=== PATIENT | female | born 1990 ===

== ENCOUNTER 2017-07-17 17:55 | Emergency (ER) | payer SELFPAY ==
[~2017-07-17] VITALS: Ht 160 cm; Wt 74.4 kg
[2017-07-17 18:06] VITALS: BP 146/84
--- NOTE | 2017-07-17 18:08 | ER Report ---
History and Physical Time Seen By MD: 18:07 HPI/ROS CHIEF COMPLAINT: ankle injury HISTORY OF PRESENT ILLNESS: This is a 27 year old female. She slipped in the snow on sloped ground and her left foot went behind her. Fell on top of it with it bent backward. Pain on dorsal and lateral surface of foot. Painful weigh bearing. No numbness. Allergies: Coded Allergies: No Known Drug Allergies (Unverified , 07/17/17) Home Meds Active Scripts Hydrocodone Bit/Acetaminophen (HYDROCODON-ACETAMINOPHEN 5-325) 1 Each Tablet, 1 EACH PO Q4H Y for PAIN, #6 TAB 0 Refills Prov:MARGARETTE RUFFIN MD 07/17/17 Reviewed Nurses Notes: Yes Constitutional Vital Sign - Last 24 Hours 07/17/17 18:06 Temp 99.5 Pulse 96 Resp 18 B/P (MAP) 146/84 Pulse Ox 96 O2 Delivery Room Air Physical Exam General appearance: Patient is alert. No acute distress. Musculoskeletal: left foot and ankle shows no significant swelling. There is no obvious deformity. No bruising. Medial malleolus is non-tender. Lateral malleolus is tender. Head of the fifth metatarsal is tender. No tenderness with squeeze of the lower leg. Weight bearing: Weight bearing not tested due to pain. Neurologic: The patient has normal sensation distal to the injury. Active range of motion is intact, but with pain. Cardiovascular: Normal dorsalis pedis and posterior tibialis pulses. Normal capillary refill. Skin: No rash. No skin breakdown. DIFFERENTIAL DIAGNOSIS: After history and physical exam differential diagnosis was considered for foot/ankle injury including sprain, fracture, dislocation and soft tissue injury. Medical Decision Making EKG/Imaging Imaging EXAMINATION: Left ankle 3 views Left foot 3 views HISTORY: Fall. Foot and ankle pain. COMPARISON: None. FINDINGS: No evidence of acute fracture or dislocation about the left ankle. Normal alignment at the ankle mortise. Soft tissues are unremarkable. No evidence of acute fracture or dislocation about the left foot. Normal alignment. Joint spaces are preserved. Soft tissues are unremarkable. IMPRESSION: Negative left ankle and foot. Report Dictated By: Jose Garcia MD at 07/17/2017 6:42 PM ED Course/Re-evaluation ED Course No sign of fracture in the foot or ankle on imaging. Reviewed the findings with the patient. WILL wrap provided. Lortab and Ibuprofen for pain. Elevation, ice and range of motion. Decision to Disposition Date: Jul 17, 2017 Decision to Disposition Time: 19:18 Depart Departure Latest Vital Signs Vital Signs Date Time Temp Pulse Resp B/P (MAP) Pulse Ox O2 Delivery O2 Flow Rate FiO2 07/17/17 18:06 99.5 96 18 146/84 96 Room Air Impression: Primary Impression: Left ankle sprain Condition: Improved Disposition: HOME OR SELF-CARE New Scripts Hydrocodone Bit/Acetaminophen (HYDROCODON-ACETAMINOPHEN 5-325) 1 Each Tablet 1 EACH PO Q4H Y for PAIN, #6 TAB 0 Refills Prov: MARGARETTE RUFFIN MD 07/17/17 Patient Instructions: Ankle Sprain (ED) Additional Instructions: Ibuprofen 200mg over the counter tablets, take 4 tablets three times a day with food. Lortab 5/325, one every 4 hours as needed for pain. Apply ice 20 minutes every 1-2 hours while awake. An WILL wrap can be used for compression to help reduce swelling. Rest the injured area, keep it elevated while at rest. Begin gentle range of motion exercises. Problem Qualifiers Primary Impression: Left ankle sprain Encounter type: initial encounter Involved ligament of ankle: unspecified ligament Qualified Codes: S93.402A - Sprain of unspecified ligament of left ankle, initial encounter MARGARETTE RUFFIN MD Jul 17, 2017 18:07
--- NOTE | 2017-07-17 18:49 | RADIOLOGY IMAGING REPORT ---
FACILITY: [facility] PATIENT NAME: Trista Matute : 1990 MR: [id number] V: [id number] EXAM DATE: ORDERING PHYSICIAN: MARGARETTE RUFFIN TECHNOLOGIST: Location: [facility] Patient: Trista Matute : 1990 Visit/Account:[id number] Date of Sevice: 07/17/2017 EXAMINATION: Left ankle 3 views Left foot 3 views HISTORY: Fall. Foot and ankle pain. COMPARISON: None. FINDINGS: No evidence of acute fracture or dislocation about the left ankle. Normal alignment at the ankle mor tise. Soft tissues are unremarkable. No evidence of acute fracture or dislocation about the left foot. Normal alignment. Joint spaces ar e preserved. Soft tissues are unremarkable. IMPRESSION: Negative left ankle and foot. Report Dictated By: Jose Garcia MD at 07/17/2017 6:42 PM Report E-Signed By: Jose Garcia MD at 07/17/2017 6:45 PM WSN:[id number]
--- NOTE | 2017-07-17 18:49 | RADIOLOGY IMAGING REPORT ---
FACILITY: PATIENT NAME: Trista Matute : 1990 MR: [id number] V: [id number] EXAM DATE: ORDERING PHYSICIAN: MARGARETTE RUFFIN TECHNOLOGIST: Location: [facility] Patient: Trista Matute : 1990 Visit/Account:[id number] Date of Sevice: 07/17/2017 EXAMINATION: Left ankle 3 views Left foot 3 views HISTORY: Fall. Foot and ankle pain. COMPARISON: None. FINDINGS: No evidence of acute fracture or dislocation about the left ankle. Normal alignment at the ankle mor tise. Soft tissues are unremarkable. No evidence of acute fracture or dislocation about the left foot. Normal alignment. Joint spaces ar e preserved. Soft tissues are unremarkable. IMPRESSION: Negative left ankle and foot. Report Dictated By: Jose Garcia MD at 07/17/2017 6:42 PM Report E-Signed By: Jose Garcia MD at 07/17/2017 6:45 PM WSN:[id number]
[2017-07-17] MEDS ORDERED: LOR5/325 PO (19:19)
[2017-07-17] MEDS ORDERED: ACET/HYDROC 5/325MG TH ER ONLY 2 TAB/BOTTLE PO ONE (19:20)
== END 2017-07-17 19:28 | disposition home or self-care (01) ==
LOC: ER 18:19
DX: S93.402A Sprain of unspecified ligament of left ankle, initial encounter (principal); W00.0XXA Fall on same level due to ice and snow, initial encounter
CPT/HCPCS: 99282

== ENCOUNTER 2018-04-08 17:42 | Emergency (ER) | payer MEDICAID ==
[~2018-04-08 17:42] MED LIST: LOR5/325 PO
--- NOTE | 2018-04-08 17:55 | ER Report ---
History and Physical Time Seen By MD: 17:55 Hx. of Stated Complaint: INCREASED DOMESTIC STRESSORS, LOSS OF FUNDS AND EVICTION, C/O PANIC/ANXIETY WITH NUMBNESS/TINGLING IN L ARM AND INTO L JAW. HPI/ROS CHIEF COMPLAINT: Headache, shortness of breath, numbness and tingling HISTORY OF PRESENT ILLNESS: 28-year-old female patient presents to emergency room with complaint of headache, shortness of breath numbness and tingling. Patient states that this all started this afternoon. She states that she was called during her lunch time and told that her and her family were being evicted. She states that she was not able to cope with that. She states that she notably work. She states she's crying quite a lot this afternoon. She states the headache developed. She said before the headache developed she did develop some numbness and tingling in the left hand and arm. She states that that persisted for a short period time and then resolve. She states she does have a headache now. She states typically she takes Tylenol for headache. She states she doesn't like to take any medications. States she did have an episode of a panic attack previously. States that they gave her some fluids for dehydration and she felt better. She states this feels very similar. REVIEW OF SYSTEMS: Respiratory: As noted above Cardiovascular: As noted above Gastrointestinal: No vomiting, no abdominal pain. Musculoskeletal: No back pain. Allergies: Coded Allergies: No Known Drug Allergies (Unverified , 04/08/18) Home Meds Discontinued Scripts Hydrocodone Bit/Acetaminophen (HYDROCODON-ACETAMINOPHEN 5-325) 1 Each Tablet, 1 EACH PO Q4H PRN for PAIN, #6 TAB 0 Refills Prov:MARGARETTE RUFFIN MD 07/17/17 Past Medical/Surgical History Patient denies a pertinent past medical or surgical history. Reviewed Nurses Notes: Yes Hx Substance Use Disorder: No Constitutional Vital Sign - Last 24 Hours 04/08/18 04/08/18 04/08/18 04/08/18 17:42 17:49 17:52 17:57 Temp 98.3 Pulse ??? 111 105 Resp 18 10 B/P (MAP) 141/104 (116) 141/104 Pulse Ox 99 98 O2 Delivery Room Air 04/08/18 04/08/18 04/08/18 04/08/18 18:00 18:12 18:27 18:30 Pulse 109 100 Resp 17 16 B/P (MAP) 134/53 (80) 117/84 (95) Pulse Ox 99 98 04/08/18 04/08/18 04/08/18 04/08/18 18:57 19:00 19:05 19:20 Pulse 103 105 96 Resp 14 17 10 B/P (MAP) 115/66 (82) Pulse Ox 96 95 97 04/08/18 04/08/18 04/08/18 04/08/18 19:30 19:35 19:50 20:00 Pulse 84 86 Resp 23 20 B/P (MAP) 112/70 (84) 116/72 (87) Pulse Ox 95 94 04/08/18 04/08/18 20:05 20:19 Pulse 92 85 Resp 16 16 B/P (MAP) 128/82 (97) Pulse Ox 95 93 O2 Delivery Room Air Physical Exam General Appearance: The patient is alert, has no immediate need for airway protection and no current signs of toxicity. Respiratory: Chest is non tender, lungs are clear to auscultation. Cardiac: regular rate and rhythm Gastrointestinal: Abdomen is soft and non tender, no masses, bowel sounds normal. Musculoskeletal: Neck: Neck is supple and non tender. Extremities have full range of motion and are non tender. Skin: No rashes or lesions. DIFFERENTIAL DIAGNOSIS: After history and physical exam differential diagnosis was considered for anxiety attack, headache, HI. Medical Decision Making Data Points Result Diagram: 04/08/183 04/08/18 1813 Laboratory Hematology Test 04/08/18 18:13 Red Blood Count 4.88 M/uL (4.17-5.56) Mean Corpuscular Volume 89.7 fL (80.0-96.0) Mean Corpuscular Hemoglobin 31.2 pg (26.0-33.0) Mean Corpuscular Hemoglobin Concent 34.8 g/dL (32.0-36.0) Red Cell Distribution Width 12.2 % (11.5-14.5) Mean Platelet Volume 7.7 fL (7.2-11.1) Neutrophils (%) (Auto) 51.3 % (39.4-72.5) Lymphocytes (%) (Auto) 40.2 % (17.6-49.6) Monocytes (%) (Auto) 7.4 % (4.1-12.4) Eosinophils (%) (Auto) 0.7 % (0.4-6.7) Basophils (%) (Auto) 0.4 % (0.3-1.4) Nucleated RBC Relative Count (auto) 0.1 /100WBC Neutrophils # (Auto) 5.1 K/uL (2.0-7.4) Lymphocytes # (Auto) 4.0 K/uL (1.3-3.6) Monocytes # (Auto) 0.7 K/uL (0.3-1.0) Eosinophils # (Auto) 0.1 K/uL (0.0-0.5) Basophils # (Auto) 0.0 K/uL (0.0-0.1) Nucleated RBC Absolute Count (auto) 0.01 K/uL Sodium Level 140 mmol/L (137-145) Potassium Level 3.5 mmol/L (3.5-5.0) Chloride Level 103 mmol/L (98-107) Carbon Dioxide Level 23 mmol/L (22-31) Blood Urea Nitrogen 8 mg/dl (7-18) Creatinine 0.70 mg/dl (0.52-1.04) Glomerular Filtration Rate Calc > 60.0 Random Glucose 97 mg/dl (75-110) Calcium Level 9.4 mg/dl (8.4-10.2) Total Bilirubin 0.4 mg/dl (0.2-1.3) Aspartate Amino Transf (AST/SGOT) 20 U/L (0-35) Alanine Aminotransferase (ALT/SGPT) 32 U/L (0-56) Alkaline Phosphatase 111 U/L (0-126) Troponin I < 0.012 ng/ml Total Protein 7.7 g/dl (6.3-8.2) Albumin 4.4 g/dl (3.5-5.0) Chemistry Test 04/08/18 18:13 White Blood Count 9.9 k/uL (4.5-11.0) Red Blood Count 4.88 M/uL (4.17-5.56) Hemoglobin 15.2 g/dL (12.0-16.0) Hematocrit 43.7 % (34.0-47.0) Mean Corpuscular Volume 89.7 fL (80.0-96.0) Mean Corpuscular Hemoglobin 31.2 pg (26.0-33.0) Mean Corpuscular Hemoglobin Concent 34.8 g/dL (32.0-36.0) Red Cell Distribution Width 12.2 % (11.5-14.5) Platelet Count 380 K/uL (150-450) Mean Platelet Volume 7.7 fL (7.2-11.1) Neutrophils (%) (Auto) 51.3 % (39.4-72.5) Lymphocytes (%) (Auto) 40.2 % (17.6-49.6) Monocytes (%) (Auto) 7.4 % (4.1-12.4) Eosinophils (%) (Auto) 0.7 % (0.4-6.7) Basophils (%) (Auto) 0.4 % (0.3-1.4) Nucleated RBC Relative Count (auto) 0.1 /100WBC Neutrophils # (Auto) 5.1 K/uL (2.0-7.4) Lymphocytes # (Auto) 4.0 K/uL (1.3-3.6) Monocytes # (Auto) 0.7 K/uL (0.3-1.0) Eosinophils # (Auto) 0.1 K/uL (0.0-0.5) Basophils # (Auto) 0.0 K/uL (0.0-0.1) Nucleated RBC Absolute Count (auto) 0.01 K/uL Glomerular Filtration Rate Calc > 60.0 Calcium Level 9.4 mg/dl (8.4-10.2) Total Bilirubin 0.4 mg/dl (0.2-1.3) Aspartate Amino Transf (AST/SGOT) 20 U/L (0-35) Alanine Aminotransferase (ALT/SGPT) 32 U/L (0-56) Alkaline Phosphatase 111 U/L (0-126) Troponin I < 0.012 ng/ml Total Protein 7.7 g/dl (6.3-8.2) Albumin 4.4 g/dl (3.5-5.0) EKG/Imaging EKG Interpretation 12 lead EKG: Rhythm: Sinus tachycardia with ventricular rate of 109 bpm [place]: normal QRS: normal ST segments: normal Imaging EXAMINATION: Chest radiographs 2 views HISTORY: Chest pain. COMPARISON: None. FINDINGS: PA and lateral views of the chest are submitted. Lines/tubes: None. Lungs/pleura: No focal consolidation or pleural effusion. Heart: Negative. Mediastinum: Negative. Bony structures/body wall: Negative. IMPRESSION: No radiographic evidence of acute cardiopulmonary disease. Report Dictated By: Faby Gonzalez MD at 04/08/2018 6:59 PM Report E-Signed By: Faby Gonzalez MD at 04/08/2018 6:59 PM ED Course/Re-evaluation ED Course Patient was admitted and examined, history of physical or obtained. Differential diagnoses were considered. On examination lungs are clear, heart is regular, abdomen soft nontender. Patient states she is having a headache, which is nothing worse headache she's had. Is very similar to her other headaches. Patient states that she delivered takes Tylenol for. Patient did receive a dose of Tylenol here. She did have improvement and had a period and chest x-ray, EKG were done. The x-ray and EKG were unremarkable. A CBC, CMP, troponin were done. Lab results were negative. We'll let the patient rest. Maternal white cell. She is able sleep for approximately 45 minutes. After that patient states she feels better. We'll go ahead and discharge her home. We discussed medication for anxiety, which I believe is an underlying cause of the headache. She states that she is fine at this time, stating that she does not like taking medications. We'll go ahead and discharge her at this time. Patient verbalized understanding and agreement with plan. Decision to Disposition Date: Apr 08, 2018 Decision to Disposition Time: 20:15 Depart Departure Latest Vital Signs Vital Signs Date Time Temp Pulse Resp B/P (MAP) Pulse Ox O2 Delivery O2 Flow Rate FiO2 04/08/18 20:19 85 16 128/82 (97) 93 Room Air 04/08/18 17:52 98.3 Impression: Primary Impression: Anxiety Additional Impression: Migraine Condition: Stable Disposition: HOME OR SELF-CARE New Scripts No Active Prescriptions or Reported Meds Patient Instructions: Anxiety (ED) Additional Instructions: Increase fluid intake. Get plenty of rest. Try to manage stress. Use things that help with coping with stress. Return to the ER if condition worsens. Follow up with your primary care provider in the next week. Problem Qualifiers Additional Impression: Migraine Migraine type: without aura Status migrainosus presence: without status migrainosus Intractability: not intractable Qualified Codes: G43.009 - Migraine without aura, not intractable, without status migrainosus DRAKE STEVENSON Apr 08, 2018 17:55
[2018-04-08] MEDS ORDERED: ACETAMINOPHEN 500 MG TAB PO ONE (18:05)
[2018-04-08] MEDS ORDERED: hydrOXYzine 25 MG TAB PO ONE (18:05)
--- NOTE | 2018-04-08 18:14 | EKG ---
[place] [facility] [place] NAME: ELVA VARGAS : [id number] MR: [id number] V: [id number] EXAM DATE: ORDERING PHYSICIAN: DRAKE STEVENSON TECHNOLOGIST: Test Reason : left arm n/t Blood Pressure : / mmHG Vent. Rate : 109 BPM Atrial Rate : 109 BPM P-R Int : 160 ms QRS Dur : 096 ms QT Int : 358 ms P-R-T Axes : 045 029 014 degrees QTc Int : 482 ms Sinus tachycardia Otherwise normal ECG No previous ECGs available Confirmed by Kodi Mai ([id number]) on 04/08/2018 9:19:35 PM Referred By: Confirmed By:Kodi Lane
[2018-04-08 18:20] LABS: PLATELET COUNT, AUTOMATED 380 K/uL (150-450)
--- NOTE | 2018-04-08 19:04 | RADIOLOGY IMAGING REPORT ---
FACILITY: [facility] PATIENT NAME: Trista Matute : 1990 MR: [id number] V: [id number] EXAM DATE: ORDERING PHYSICIAN: DRAKE STEVENSON TECHNOLOGIST: Location: [facility] [place] Patient: Trista Matute : 1990 Visit/Account:[id number] Date of Sevice: 04/08/2018 EXAMINATION: Chest radiographs 2 views HISTORY: Chest pain. COMPARISON: None. FINDINGS: PA and lateral views of the chest are submitted. Lines/tubes: None. Lungs/pleura: No focal consolidation or pleural effusion. Heart: Negative. Mediastinum: Negative. Bony structures/body wall: Negative. IMPRESSION: No radiographic evidence of acute cardiopulmonary disease. Report Dictated By: Faby Gonzalez MD at 04/08/2018 6:59 PM Report E-Signed By: Faby Gonzalez MD at 04/08/2018 6:59 PM WSN:[id number]
[2018-04-08] MEDS ORDERED: ONDANSETRON 4 MG/2 ML VIAL IVP ONE (19:05)
[2018-04-08 20:19] VITALS: BP 128/82
== END 2018-04-08 20:23 | disposition home or self-care (01) ==
LOC: ER 18:02
DX: G43.009 Migraine without aura, not intractable, without status migrainosus (principal); F41.9 Anxiety disorder, unspecified; R06.02 Shortness of breath
CPT/HCPCS: 71046; 82040; 82247; 82310; 82374; 82435; 82565; 82947; 84075; 84132; 84155; 84295; 84450; 84460; 84484; 84520; 85025; 93005; 99284

== ENCOUNTER 2018-06-11 04:36 | Emergency (ER) | payer MEDICAID ==
--- NOTE | 2018-06-11 04:41 | ER Report ---
History and Physical Time Seen By MD: 04:38 HPI/ROS CHIEF COMPLAINT: Abdominal pain HISTORY OF PRESENT ILLNESS: 28-year-old female presents ambulatory to the ER complaining of crampy, migratory lower abdominal pain for 4 days. Patient notes no vomiting or diarrhea. She has some nausea. She's notes no dysuria, frequency or hematuria. Patient is status post tubal ligation. Patient also has a history of . He notes the pain is now primarily in the left upper quadrant. REVIEW OF SYSTEMS: Respiratory: No cough, no dyspnea. Cardiovascular: No chest pain, no palpitations. Gastrointestinal: As above Musculoskeletal: No back pain. Allergies: Coded Allergies: No Known Drug Allergies (Unverified , 06/11/18) Home Meds No Active Prescriptions or Reported Meds Reviewed Nurses Notes: Yes Old Medical Records Reviewed: Yes Hx Substance Use Disorder: No Constitutional Vital Sign - Last 24 Hours 06/11/18 06/11/18 06/11/18 06/11/18 04:43 04:45 04:51 05:00 Temp 98.0 Pulse 100 ??? Resp 16 B/P (MAP) 140/93 117/80 (92) 115/75 (88) Pulse Ox 97 98 O2 Delivery Room Air 06/11/18 06/11/18 06/11/18 06/11/18 05:06 05:15 05:21 05:30 Pulse 80 90 B/P (MAP) 121/74 (90) 116/72 (87) Pulse Ox 96 99 06/11/18 05:36 Pulse 84 Pulse Ox 95 Physical Exam General Appearance: The patient is alert, has no immediate need for airway protection and no current signs of toxicity. Vital signs stable, afebrile, pulse ox normal Eyes: Pupils equal and round no injection. Respiratory: Chest is non tender, lungs are clear to auscultation. Cardiac: regular rate and rhythm Gastrointestinal: Abdomen is soft, mild left upper quadrant tenderness, no rebound or guarding, no masses, bowel sounds normal. Musculoskeletal: Neck: Neck is supple and non tender. No lymphadenopathy Extremities have full range of motion and are non tender. Skin: No rashes or lesions. DIFFERENTIAL DIAGNOSIS: After history and physical exam differential diagnosis was considered for abdominal pain including but not limited to appendicitis, cholecystitis, gastritis and urinary tract infection. Additionally,abdominal pain in a female including but not limited to ovarian cyst, pelvic inflammatory disease, ovarian torsion, urinary tract infection, and appendicitis. Medical Decision Making Data Points Result Diagram: 06/11/18 0448 06/11/18 0448 Laboratory Hematology Test 06/11/18 04:40 06/11/18 04:48 Urine Color Yellow Urine Clarity Clear Urine pH 6.0 pH (4.8-9.5) Urine Specific [place] 1.019 Urine Protein Negative mg/dL (NEGATIVE) Urine Glucose (UA) Negative mg/dL (NEGATIVE) Urine Ketones Negative mg/dL (NEGATIVE) Urine Blood Negative (NEGATIVE) Urine Nitrite Negative (NEGATIVE) Urine Bilirubin Negative (NEGATIVE) Urine Urobilinogen Negative mg/dL (0.2-1.9) Urine Leukocyte Esterase Negative (NEGATIVE) Urine RBC None /HPF (0-2/HPF) Urine WBC 2 /HPF (0-5/HPF) Urine Squamous Epithelial Cells Many /LPF (</=FEW) Urine Transitional Epithelial Cells Few /LPF (NONE-FEW) Urine Bacteria Negative /HPF (NONE-FEW) Urine Mucus None /HPF (NONE-FEW) Red Blood Count 4.85 M/uL (4.17-5.56) Mean Corpuscular Volume 91.4 fL (80.0-96.0) Mean Corpuscular Hemoglobin 31.5 pg (26.0-33.0) Mean Corpuscular Hemoglobin Concent 34.5 g/dL (32.0-36.0) Red Cell Distribution Width 12.6 % (11.5-14.5) Mean Platelet Volume 7.8 fL (7.2-11.1) Neutrophils (%) (Auto) 55.4 % (39.4-72.5) Lymphocytes (%) (Auto) 34.9 % (17.6-49.6) Monocytes (%) (Auto) 7.9 % (4.1-12.4) Eosinophils (%) (Auto) 1.3 % (0.4-6.7) Basophils (%) (Auto) 0.5 % (0.3-1.4) Nucleated RBC Relative Count (auto) 0.0 /100WBC Neutrophils # (Auto) 5.4 K/uL (2.0-7.4) Lymphocytes # (Auto) 3.4 K/uL (1.3-3.6) Monocytes # (Auto) 0.8 K/uL (0.3-1.0) Eosinophils # (Auto) 0.1 K/uL (0.0-0.5) Basophils # (Auto) 0.0 K/uL (0.0-0.1) Nucleated RBC Absolute Count (auto) 0.00 K/uL Sodium Level 140 mmol/L (137-145) Potassium Level 3.8 mmol/L (3.5-5.0) Chloride Level 106 mmol/L (98-107) Carbon Dioxide Level 24 mmol/L (22-31) Blood Urea Nitrogen 15 mg/dl (7-18) Creatinine 0.70 mg/dl (0.52-1.04) Glomerular Filtration Rate Calc > 60.0 Random Glucose 93 mg/dl (75-110) Calcium Level 9.4 mg/dl (8.4-10.2) Total Bilirubin 0.3 mg/dl (0.2-1.3) Aspartate Amino Transf (AST/SGOT) 22 U/L (0-35) Alanine Aminotransferase (ALT/SGPT) 37 U/L (0-56) Alkaline Phosphatase 105 U/L (0-126) Total Protein 7.3 g/dl (6.3-8.2) Albumin 4.2 g/dl (3.5-5.0) Amylase Level 63 U/L (0-110) Lipase 136 U/L (23-300) Human Chorionic Gonadotropin, Qual Negative (NEGATIVE) Chemistry Test 06/11/18 04:40 06/11/18 04:48 Urine Color Yellow Urine Clarity Clear Urine pH 6.0 pH (4.8-9.5) Urine Specific [place] 1.019 Urine Protein Negative mg/dL (NEGATIVE) Urine Glucose (UA) Negative mg/dL (NEGATIVE) Urine Ketones Negative mg/dL (NEGATIVE) Urine Blood Negative (NEGATIVE) Urine Nitrite Negative (NEGATIVE) Urine Bilirubin Negative (NEGATIVE) Urine Urobilinogen Negative mg/dL (0.2-1.9) Urine Leukocyte Esterase Negative (NEGATIVE) Urine RBC None /HPF (0-2/HPF) Urine WBC 2 /HPF (0-5/HPF) Urine Squamous Epithelial Cells Many /LPF (</=FEW) Urine Transitional Epithelial Cells Few /LPF (NONE-FEW) Urine Bacteria Negative /HPF (NONE-FEW) Urine Mucus None /HPF (NONE-FEW) White Blood Count 9.7 k/uL (4.5-11.0) Red Blood Count 4.85 M/uL (4.17-5.56) Hemoglobin 15.3 g/dL (12.0-16.0) Hematocrit 44.3 % (34.0-47.0) Mean Corpuscular Volume 91.4 fL (80.0-96.0) Mean Corpuscular Hemoglobin 31.5 pg (26.0-33.0) Mean Corpuscular Hemoglobin Concent 34.5 g/dL (32.0-36.0) Red Cell Distribution Width 12.6 % (11.5-14.5) Platelet Count 340 K/uL (150-450) Mean Platelet Volume 7.8 fL (7.2-11.1) Neutrophils (%) (Auto) 55.4 % (39.4-72.5) Lymphocytes (%) (Auto) 34.9 % (17.6-49.6) Monocytes (%) (Auto) 7.9 % (4.1-12.4) Eosinophils (%) (Auto) 1.3 % (0.4-6.7) Basophils (%) (Auto) 0.5 % (0.3-1.4) Nucleated RBC Relative Count (auto) 0.0 /100WBC Neutrophils # (Auto) 5.4 K/uL (2.0-7.4) Lymphocytes # (Auto) 3.4 K/uL (1.3-3.6) Monocytes # (Auto) 0.8 K/uL (0.3-1.0) Eosinophils # (Auto) 0.1 K/uL (0.0-0.5) Basophils # (Auto) 0.0 K/uL (0.0-0.1) Nucleated RBC Absolute Count (auto) 0.00 K/uL Glomerular Filtration Rate Calc > 60.0 Calcium Level 9.4 mg/dl (8.4-10.2) Total Bilirubin 0.3 mg/dl (0.2-1.3) Aspartate Amino Transf (AST/SGOT) 22 U/L (0-35) Alanine Aminotransferase (ALT/SGPT) 37 U/L (0-56) Alkaline Phosphatase 105 U/L (0-126) Total Protein 7.3 g/dl (6.3-8.2) Albumin 4.2 g/dl (3.5-5.0) Amylase Level 63 U/L (0-110) Lipase 136 U/L (23-300) Human Chorionic Gonadotropin, Qual Negative (NEGATIVE) Urinalysis Test 06/11/18 04:40 Urine Color Yellow Urine Clarity Clear Urine pH 6.0 pH (4.8-9.5) Urine Specific [place] 1.019 Urine Protein Negative mg/dL (NEGATIVE) Urine Glucose (UA) Negative mg/dL (NEGATIVE) Urine Ketones Negative mg/dL (NEGATIVE) Urine Blood Negative (NEGATIVE) Urine Nitrite Negative (NEGATIVE) Urine Bilirubin Negative (NEGATIVE) Urine Urobilinogen Negative mg/dL (0.2-1.9) Urine Leukocyte Esterase Negative (NEGATIVE) Urine RBC None /HPF (0-2/HPF) Urine WBC 2 /HPF (0-5/HPF) Urine Squamous Epithelial Cells Many /LPF (</=FEW) Urine Transitional Epithelial Cells Few /LPF (NONE-FEW) Urine Bacteria Negative /HPF (NONE-FEW) Urine Mucus None /HPF (NONE-FEW) ED Course/Re-evaluation Clinical Indication for ER IV: IV Access ED Course Patient was admitted to an examination room. H&P was done. The differential diagnoses was considered. On clinical examination, patient is a benign nonsurgical abdomen. She primary has left upper quadrant tenderness. She notes the pain to been migratory, starting in the left lower quadrant moving to the right lower quadrant and now to the left upper quadrant. She notes that, and go intermittently over the last 4 days. She denies constipation or diarrhea. She notes no fever or chills. A peripheral IV is established. Patient's offered Zofran and Toradol, but declines. Patient's diagnostic studies are unremarkable. Her KUB 3-way shows moderate fecal stasis throughout the entire colon. Patient advised to conservative treatment plan of clear liquid diet for 44-48 hours and MiraLAX 2-3 times per day to help evacuate her bowels. Decision to Disposition Date: Jun 11, 2018 Decision to Disposition Time: 05:41 Depart Departure Latest Vital Signs Vital Signs Date Time Temp Pulse Resp B/P (MAP) Pulse Ox O2 Delivery O2 Flow Rate FiO2 06/11/18 05:36 84 95 06/11/18 05:30 116/72 (87) 06/11/18 04:43 98.0 16 Room Air Impression: Primary Impression: Abdominal pain Additional Impression: Constipation Condition: Improved Disposition: HOME OR SELF-CARE New Scripts No Active Prescriptions or Reported Meds Patient Instructions: Clear Liquid Diet (ED), Constipation (ED) Additional Instructions: Follow clear liquid diet for 24-48 hours Take MiraLAX 1 capful 2-3 times a day for the next 2 days Follow-up with primary care if unimproved in 3-5 days. Problem Qualifiers Primary Impression: Abdominal pain Abdominal location: unspecified location Qualified Codes: R10.9 - Unspecified abdominal pain Additional Impression: Constipation Constipation type: unspecified constipation type Qualified Codes: K59.00 - Constipation, unspecified ZAK CARBALLO DO Jun 11, 2018 04:41
[2018-06-11 04:59] LABS: PLATELET COUNT, AUTOMATED 340 K/uL (150-450)
[2018-06-11 05:30] VITALS: BP 116/72
--- NOTE | 2018-06-11 05:42 | RADIOLOGY IMAGING REPORT ---
FACILITY: [facility] [place] PATIENT NAME: Trista Matute : 1990 MR: [id number] V: [id number] EXAM DATE: ORDERING PHYSICIAN: ZAK CARBALLO TECHNOLOGIST: Location: [facility] Patient: Trista Matute : 1990 Visit/Account:[id number] Date of Sevice: 06/11/2018 KUB SINGLE VIEW ABDOMEN HISTORY: Abdominal pain for 3 days. COMPARISON: None. FINDINGS: Supine views of the abdomen were obtained. Distribution of bowel gas is normal with bowel in all four quadrants as well as centrally. There is m ild to moderate stool in colon. No dilated bowel loops. No free air. There are pelvic surgical clips from tubal ligation. No acute osseous abnormality. IMPRESSION: 1. Mild to moderate stool burden. No obstruction. Report Dictated By: Avani Pritchett at 06/11/2018 5:36 AM Report E-Signed By: Avani Pritchett at 06/11/2018 5:37 AM [id number]
== END 2018-06-11 05:53 | disposition home or self-care (01) ==
LOC: ER 04:46
DX: R10.12 Left upper quadrant pain (principal); K59.00 Constipation, unspecified
CPT/HCPCS: 74018; 81001; 82040; 82150; 82247; 82310; 82374; 82435; 82565; 82947; 83690; 84075; 84132; 84155; 84295; 84450; 84460; 84520; 84703; 85025; 99283